=== PATIENT | male | born 1975 | race Caucasian/White ===

== ENCOUNTER 2017-11-15 14:41 | Emergency (ER) | payer OTHER ==
[~2017-11-15] VITALS: Ht 180.3 cm; Wt 90.7 kg
[~2017-11-15 14:41] MED LIST: AMLODIPINE BESY10 MG PO; ATIVAN1 MG PO; CHLORPROPAMIDE PO; DEPAKOTE500 MG PO; GEODON40 MG PO; HALOPERIDOL1 MG PO; LISINOPRIL20 MG PO; TRAZODONE HCL100 MG PO
[2017-11-15] MEDS ORDERED: LAMICTAL25 MG PO (23:12)
[2017-11-15] MEDS ORDERED: ZYPREXA10 MG PO (23:13)
[2017-11-15] MEDS ORDERED: PROPANOLOL PO (23:13)
[2017-11-15] MEDS ORDERED: LITHIUM CARBON300 M1 PO (23:14)
== END 2017-11-17 04:50 | disposition home or self-care (01) ==
LOC: ED 14:41
DX: F31.9 Bipolar disorder, unspecified (principal); F23 Brief psychotic disorder; Z91.14 Patient's other noncompliance with medication regimen; F17.200 Nicotine dependence, unspecified, uncomplicated; Z79.899 Other long term (current) drug therapy
CPT/HCPCS: 36415; 80053; 80176; 80178; 81001; 84443; 85025; 87088; 96372; 96374; 99285; G0480; J2060; J3486

== ENCOUNTER 2018-08-29 11:55 | Emergency (ER) | payer MEDICARE, MEDICAID, OTHER ==
[~2018-08-29] VITALS: Ht 180.3 cm; Wt 90.7 kg
--- OUTSIDE RECORDS SUMMARY | ~2018-08-29 | XMS | Clinical Summary ---
Demographics + + + | Address | [address] | | | [place] [address] | + + + | Home Phone | | + + + | Preferred Language | Unknown | + + + | Marital Status | Unknown | + + + | Mandaeism Affiliation | Unknown | + + + | Race | Unknown | + + + | Ethnic Group | Unknown | + + + Author + + + | Author | [facility] | + + + | Organization | [facility] | + + + | Address | Unknown | + + + | Phone | Unavailable | + + + Support + + +---------+ + | Name | Relationship | Address | Phone | + + +---------+ + | None,Listed | ECON | Unknown | | + + +---------+ + Care Team Providers + +------+ + | Care Outlet Manager Name | Role | Phone | + +------+ + | Cristóbal Thomas MD | PP | | + +------+ + Allergies Not on File Current Medications Not on file Active Problems Not on file Social History + +-------+ +--------+------+ | Tobacco [...] | + + + Plan of Treatment Not on file Results Not on filefrom Last 3 Months Insurance + +--------+ +------+-------+ + | Payer | Benefi | Subscriber | Type | Phone | Address | | | t Plan | ID | | | | | | / | | | | | | | Group | | | | | + +--------+ +------+-------+ + | MEDICAID | [employer] | [id number] | | | [address] | | | N | | | | [place] | | | [place] | | | | [phone] | | | 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
--- OUTSIDE RECORDS SUMMARY | ~2018-08-29 | XMS | Clinical Summary ---
Demographics + + + | Address | [address] | | | [place] [address] | + + + | Home Phone | | + + + | Preferred Language | Unknown | + + + | Marital Status | Unknown | + + + | Adventism Affiliation | Unknown | + + + | Race | Unknown | + + + | Ethnic Group | Unknown | + + + Author + + + | Author | [facility] | + + + | Organization | [facility] | + + + | Address | Unknown | + + + | Phone | Unavailable | + + + Support + + +---------+ + | Name | Relationship | Address | Phone | + + +---------+ + | None,Listed | ECON | Unknown | | + + +---------+ + Care Team Providers + +------+ + | Care Cake Tester Name | Role | Phone | + [...] +------+-------+ + | MEDICAID | [employer] | [id number] | | | [address] | | | N | | | | [place] | | | [place] | | | | [phone] | | | 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
[~2018-08-29 11:55] MED LIST changes: +LAMICTAL25 MG PO; +LITHIUM CARBON300 M1 PO; +PROPANOLOL PO; +ZYPREXA10 MG PO
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
== END 2018-08-29 15:44 | disposition short-term general hospital (02) ==
LOC: ED 11:55
DX: Z00.8 Encounter for other general examination (principal); F31.9 Bipolar disorder, unspecified; F17.200 Nicotine dependence, unspecified, uncomplicated; Z79.899 Other long term (current) drug therapy
CPT/HCPCS: 51701; 80053; 80176; 80178; 81001; 84443; 85025; 99284; G0480; J3486

== ENCOUNTER → 2018-11-09 | Emergency (ER) | payer MEDICARE, MEDICAID ==
[~2018-11-09] VITALS: Ht 180.3 cm; Wt 90.7 kg
[~2018-11-09] MED LIST changes: +ALL DAY ALLERGY10 M3 PO; +CARBATROL200 MG PO; +COREG25 MG PO; +HYDRALAZINE HCL10 MG PO; +LISINOPRIL40 MG PO; +LITHIUM CARBON300 M2 PO; +LITHIUM CARBON450 MG PO; +NORVASC10 MG PO; +RESTORIL30 MG PO
--- OUTSIDE RECORDS SUMMARY | ~2018-11-09 | XMS | Clinical Summary ---
Demographics + + + | Address | [address] | | | [place] [address] | + + + | Home Phone | | + + + | Preferred Language | Unknown | + + + | Marital Status | Unknown | + + + | Jewish Affiliation | Unknown | + + + | Race | Unknown | + + + | Ethnic Group | Unknown | + + + Author + + + | Author | [facility] [employer] | + + + | Organization | [facility] [employer] | + + + | Address | Unknown | + + + | Phone | Unavailable | + + + Support + + +---------+ + | Name | Relationship | Address | Phone | + + +---------+ + | None,Listed | ECON | Unknown | | + + +---------+ + Care Team Providers + +------+ + | Care Registered Nurse Surgical Services Name | Role | Phone | + +------+ + | Cristóbal Thomas MD | PP | | + +------+ + Allergies Not on File Current Medications Not on file Active Problems Not on file Encounters +--------+ + + + + | Date | Type | Specialty | Care Team | Description | +--------+ + + + + | 10/29/ | Documentati | | Alfonso Abrams MD | Other (Referral from | | 2018 | on Only | | | [facility] ([place] | | | | | | [place])) | +--------+ + + + + | 10/15/ | Documentati | | Alfonso Abrams MD | Other (10/12/18 | | 2019 | on Only | | | Message from | | | | | | Answering Service) | +--------+ + + + + from Last 3 Months Social History + +-------+ +--------+------+ | Tobacco Use | Types | Packs/Day | Years | Date | | | | | Used | | + +-------+ +--------+------+ | Never Assessed | | | | | + +-------+ +--------+------+ + + + | Sex Assigned at | Date Recorded | | | | + + + | Not on file | | + + + Plan of Treatment +--------+ + + + + | Date | Type | Specialty | Care Team | Description | +--------+ + + + + | 12/12/ | Initial | | Alfonso Abrams MD | | | 2019 | consult | | [address] | | | | | | [address] [place], [place] | | | | | | [address] | | | | | | | | +--------+ + + + + + + + + + | Health Maintenance | Due Date | Last Done | Comments | + + + + + | Vaccine: | | | | | Dtap/Tdap/Td (1 - | 4 | | | | Tdap) | | | | + + + + + | Vaccine: Influenza | | | | | (Season Ended) | 9 | | | + + + + + Results Not on filefrom Last 3 Months Insurance + +--------+ +------+-------+ + | Payer | Benefi | Subscriber | Type | Phone | Address | | | t Plan | ID | | | | | | / | | | | | | | Group | | | | | + +--------+ +------+-------+ + | MEDICAID | [employer] | [id number] | | | [address] | | | N | | | | [place] | | | [place] | | | | [address] | | | SYSTEMS COORDINATOR | | | | | + +--------+ +------+-------+ + + +--------+ +--------+ + + | Guarantor Name | Accoun | Relation to | Date | Phone | Billing Address | | | t Type | Patient | of | | | | | | | | | | + +--------+ +--------+ + + | JADIEL VO | Person | Self | [birth year] Home: | [address] | | | [place] | | 1976 | [phone] | [place] | | | [place] | | | [phone] | [phone] | + +--------+ +--------+ + +"
--- OUTSIDE RECORDS SUMMARY | ~2018-11-09 | XMS | Encounter Summary ---
Demographics + + + | Address | [address] | | | [place] [address] | + + + | Home Phone | | + + + | Preferred Language | Unknown | + + + | Marital Status | Unknown | + + + | Adventist Affiliation | Unknown | + + + | Race | Unknown | + + + | Ethnic Group | Unknown | + + + Author + + + | Author | [facility] | + + + | Organization | [facility] | + + + | Address | Unknown | + + + | Phone | Unavailable | + + + Support + + +---------+ + | Name | Relationship | Address | Phone | + + +---------+ + | None,Listed | ECON | Unknown | | + + +---------+ + Care Team Providers + +------+ + | Care Forest Management Professor Name | Role | Phone | + +------+ + | Cristóbal Thomas MD | PCP | | + +------+ + Reason for Visit +--------+ + | Reason | Comments | +--------+ + | Other | 10/12/18 Message from Answering Service | +--------+ + Encounter Details +--------+ + + + + | Date | Type | Department | Care Team | Description | +--------+ + + + + | 10/15/ | Documentati | [facility] | Alfonso Abrams MD | Other (10/12/18 | | 2019 | on Only | [place] [address] | [address] | Message from | | | | [address] | [address] [place], [place] | Answering Service) | | | | [place] [address] | [id number] | | | | | [phone] | | | +--------+ + + + + Social History + +-------+ +--------+------+ | Tobacco [...] on file | | + + + as of this encounter Plan of Treatment +--------+ + + + + | Date | Type | Specialty | Care Team | Description | +--------+ + + + + | 12/12/ | Initial | Nephrology | Alfonso Abrams MD | | | 2019 | consult | | [address] | | | | | | [address] [place] | | | | | | [address] | | | | | | | | +--------+ + + + + as of this encounter Visit Diagnoses Not on filein this encounter"
--- OUTSIDE RECORDS SUMMARY | ~2018-11-09 | XMS | Clinical Summary ---
Demographics + + + | Address | [address] | | | [place] [address] | + + + | Home Phone | | + + + | Preferred Language | Unknown | + + + | Marital Status | Unknown | + + + | Sikhism Affiliation | Unknown | + + + | Race | Unknown | + + + | Ethnic Group | Unknown | + + + Author + + + | Author | [facility] | + + + | Organization | [facility] | + + + | Address | Unknown | + + + | Phone | Unavailable | + + + Support + + +---------+ + | Name | Relationship | Address | Phone | + + +---------+ + | None,Listed | ECON | Unknown | | + + +---------+ + Care Team Providers + +------+ + | Care Soap Press Feeder Name | Role | Phone | + [...] | | | | | | [address] [place], [place] | | | | | | [address] | | | | | | | [...] +------+-------+ + | MEDICAID | [employer] | [id number] | | | [address] | | | N | | | | [place] | | | [place] | | | | [address] | | | WELDER MANUFACTURE | | | | | + +--------+ [...] | Self | [birth year] | Home: | [address] | | | [place] | | 1976 | [phone] | [place] | | | [place] | | | [phone] | [phone] | + +--------+ +--------+ + +"
--- OUTSIDE RECORDS SUMMARY | ~2018-11-09 | XMS | Encounter Summary ---
Demographics + + + | Address | [address] | | | [place] [address] | + + + | Home Phone | | + + + | Preferred Language | Unknown | + + + | Marital Status | Unknown | + + + | Rastafari Affiliation | Unknown | + + + | Race | Unknown | + + + | Ethnic Group | Unknown | + + + Author + + + | Author | [facility] | + + + | Organization | [facility] | + + + | Address | Unknown | + + + | Phone | Unavailable | + + + Support + + +---------+ + | Name | Relationship | Address | Phone | + + +---------+ + | None,Listed | ECON | Unknown | | + + +---------+ + Care Team Providers + +------+ + | Care Manager Latin Name | Role | Phone | + [...] | | 2019 | on Only | [place] [address] | [address] | Message from | | | | [address] | [address] [place], [place] | Answering Service) | | | | [place] [address] | [id number] | | | | | [phone] | | | +--------+ + + + [...] | | | | | | [address] [place] | | | | | | [id number] | | | | | | | | +--------+ + + + + as of this encounter Visit Diagnoses Not on filein this encounter"
--- OUTSIDE RECORDS SUMMARY | ~2018-11-09 | XMS | Encounter Summary ---
Demographics + + + | Address | [address] | | | [place] [address] | + + + | Home Phone | | + + + | Preferred Language | Unknown | + + + | Marital Status | Unknown | + + + | Yazdanism Affiliation | Unknown | + + + | Race | Unknown | + + + | Ethnic Group | Unknown | + + + Author + + + | Author | [facility] | + + + | Organization | [facility] | + + + | Address | Unknown | + + + | Phone | Unavailable | + + + Support + + +---------+ + | Name | Relationship | Address | Phone | + + +---------+ + | None,Listed | ECON | Unknown | | + + +---------+ + Care Team Providers + +------+ + | Care Blowing Weasand Name | Role | Phone | + +------+ + | Cristóbal Thomas MD | PCP | | + +------+ + Reason for Visit +--------+ + | Reason | Comments | +--------+ + | Other | Referral from [facility] ([place] | +--------+ + Encounter Details +--------+ + + + + | Date | Type | Department | Care Team | Description | +--------+ + + + + | 10/29/ | Documentati | [facility] | Alfonso Abrams MD | Other (Referral from | | 2019 | on Only | [place] [address] | [address] | [facility] [place] | | | | [address] | [address] [place], [place] | [place].)) | | | | [place] [address] | [address] | | | | | [phone] | | | +--------+ + + + [...] | | | | | | [address] [place], [place] | | | | | | [id number] | | | | | | | | +--------+ + + + + as of this encounter Visit Diagnoses Not on filein this encounter"
--- OUTSIDE RECORDS SUMMARY | ~2018-11-09 | XMS | Encounter Summary ---
Demographics + + + | Address | [address] | | | [place] [address] | + + + | Home Phone | | + + + | Preferred Language | Unknown | + + + | Marital Status | Unknown | + + + | Sabianist Affiliation | Unknown | + + + | Race | Unknown | + + + | Ethnic Group | Unknown | + + + Author + + + | Author | [facility] | + + + | Organization | [facility] | + + + | Address | Unknown | + + + | Phone | Unavailable | + + + Support + + +---------+ + | Name | Relationship | Address | Phone | + + +---------+ + | None,Listed | ECON | Unknown | | + + +---------+ + Care Team Providers + +------+ + | Care Fruit Shipper Name | Role | Phone | + +------+ + | Cristóbal Thomas MD | PCP | | + +------+ + Reason for Visit +--------+ + | Reason | Comments | +--------+ + | Other | Referral from [facility] ([place], [place] | +--------+ + Encounter Details +--------+ + + + + | Date | Type | Department | Care Team | Description | +--------+ + + + + | 10/29/ | Documentati | [facility] | Alfonso Abrams MD | Other (Referral from | | 2019 | on Only | [place] [address] | [address] | [facility] | | | | [address] | [address] [place], [place] | [place].)) | | | | [place] [address] | [address] | | | | | [phone] | | | +--------+ + + + [...] | | | | | | [address] [place], [place] | | | | | | [id number] | | | | | | | | +--------+ + + + + as of this encounter Visit Diagnoses Not on filein this encounter"
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
== END ==
LOC: ED 09:01
DX: F29 Unspecified psychosis not due to a substance or known physiological condition (principal); F31.9 Bipolar disorder, unspecified; F17.200 Nicotine dependence, unspecified, uncomplicated; Z79.899 Other long term (current) drug therapy
CPT/HCPCS: 36415; 80053; 80176; 80178; 81001; 85025; 96372; 99285-25; G0480; J1200; J2060; J3486